=== PATIENT | male | born 1955 | race Caucasian/White ===

== ENCOUNTER 2022-05-16 16:30 | Emergency (ER) | payer OTHER, SELFPAY ==
[2022-05-16 16:39] VITALS: BP 174/76; PULSE 73; RESP 18; TEMP 36.4; O2SAT 99
--- NOTE | 2022-05-16 16:59 | PC.NURSE ---
Pt to the intake desk and states i was able to reduce it and ill just followup with the surgeon tomorrow
== END 2022-05-16 16:59 | disposition left against medical advice (07) ==
LOC: ANHED 17:12
PROVIDERS: PCP Internal Medicine
DX: R10.9 Unspecified abdominal pain (principal)
CPT/HCPCS: 99199

== ENCOUNTER 2022-05-30 01:46 | Day surgery (SDC) | payer OTHER, SELFPAY ==
[2022-05-26 09:27] VITALS: BMI 34.0
--- NOTE | 2022-05-27 13:57 | PM.HPGS ---
History of Present Illness History of Present Illness Consent: Risks, benefits, and alternatives have been discussed and questions answered. Patient agrees to proceed with procedure. Chief complaint: neoplasm screening Narrative: Zechariah Stapleton is a 67 year old male referred for colon cancer screening. Review of Systems Review of Systems: All systems reviewed & are unremarkable except as noted in HPI and below PMFSH Past Medical History Medical History HTN (hypertension) GILBERT (obstructive sleep apnea) Paroxysmal A-fib Family History Family History Sibling Patient's sister is in good health Father Bladder cancer Malignant neoplasm of prostate Mother Breast cancer Hypothyroidism Hypertension Social History Social History Smoking status: Former smoker Smoking end date: 07/31/86 Additional smoking assessment comments: Very distant Substance use type: does not use Spiritual care concerns: No Meds Home Medications and Allergies Home Medications Medication Instructions Recorded Confirmed Type apixaban 5 mg tablet (Eliquis) 5 mg PO BID 04/10/20 05/26/22 History candesartan 16 mg tablet 16 mg PO DAILY 04/10/20 05/26/22 History flecainide 50 mg tablet 50 mg PO Q12H 04/10/20 05/26/22 History multivitamin 1 tablet PO DAILY 04/10/20 05/26/22 History verapamil 180 mg 24 hr 360 mg PO HS 04/13/20 05/26/22 History capsule,extended release Allergies Allergy/AdvReac Type Severity Reaction Status Date / Time No Known Allergies Allergy Verified 05/30/22 12:21 Exam Resp: Auscultation: clear to auscultation bilaterally Cardio: Rate: regular rate Rhythm: regular rhythm GI: GI Palp: Yes Soft to palpation and No Tenderness to palpation present (GI) Assessment and Plan Assessment and plan (1) Encounter for screening colonoscopy: Code(s): Z12.11 - Encounter for screening for malignant neoplasm of colon Status: Acute Assessment and Plan: Colonoscopy with possible biopsy or polypectomy or cautery or injection of substances.
--- NOTE | 2022-05-27 16:34 | PC.NURSE ---
DR. JIMENEZ OFFICE CALLED REGARDING CLEARANCE TO HOLD ELIQUIS, OFFICE UNABLE TO GET CLEARANCE FROM PROVIDER AT THIS TIME, DR. LANDEROS CALLED REGARDING THIS AND HE IS OKAY FOR PT TO HOLD ELIQUIS FOR 2 DAYS AND PROCEED WITH COLONOSCOPY ON Monday05/30/2022 PATIENT IS PAROXYSMAL AFIB AND IS CURRENTLY NOT IN AFIB. PT CALLED AND WILL HOLD ELIQUIS STARTING WITH 05/28/2022 AM DOSE.
[2022-05-30 12:24] VITALS: BP 157/77; PULSE 58; RESP 18; TEMP 36.4; O2SAT 98; BMI 33.5
[2022-05-30] MEDS: LACTATED RINGERS 1,000 ML 150 ML IV CONT (12:33)
--- NOTE | 2022-05-30 12:47 | WPDANESEPPF ---
Anes - Initial Pre Proc Eval Procedure: Operation Date: 05/30/22 13:30 Proposed Procedures p Screening Colonoscopy - Lucian Goodman MD Date/Time: 05/30/22 12:47 Surgeon: Lucian Goodman MD Pre Op Diagnosis: neoplasm screening Patient Data Age: 67 Gender: M Height: 1.75 m Weight: 102.8 kg Last Vital Signs Temp 36.4 C 05/30/22 12:24 Pulse 58 L 05/30/22 12:24 Resp 18 05/30/22 12:24 BP 157/77 H 05/30/22 12:24 Pulse Ox 98 05/30/22 12:24 O2 Del Method Room Air 05/30/22 12:24 Allergies Allergy/AdvReac Type Severity Reaction Status Date / Time No Known Allergies Allergy Verified 05/30/22 12:21 Home Medications Medication Instructions Recorded Confirmed Type apixaban 5 mg tablet (Eliquis) 5 mg PO BID 04/10/20 05/26/22 History candesartan 16 mg tablet 16 mg PO DAILY 04/10/20 05/26/22 History flecainide 50 mg tablet 50 mg PO Q12H 04/10/20 05/26/22 History multivitamin 1 tablet PO DAILY 04/10/20 05/26/22 History verapamil 180 mg 24 hr 360 mg PO HS 04/13/20 05/26/22 History capsule,extended release Patient hx anesthesia problems: none Family hx anesthesia problems: none Results Review: All pre-operative results and documents have been reviewed as part of the pre-operative evaluation. [facility]LY [facility] Past Medical History Medical History HTN (hypertension) GILBERT (obstructive sleep apnea) Paroxysmal A-fib Family History Family History Sibling Patient's sister is in good health Father Bladder cancer Malignant neoplasm of prostate Mother Breast cancer Hypothyroidism Hypertension Social History Social History Smoking status: Former smoker Smoking end date: 07/31/86 Additional smoking assessment comments: Very distant Substance use type: does not use Spiritual care concerns: No Anes - Eval Final PreProcedure Day of Procedure 05/30/22 12:47 Patient weight: obese Heart: regular rate and rhythm Lungs: clear to auscultation Airway: Mallampati scale class II Last oral intake: >/= 8 hours ASA classification: III Emergent: no Anesthetic plan: proceed Anesthesia type and monitoring: general GIVS and standard monitoring Results Review: All pre-operative results and documents have been reviewed as part of the pre-operative evaluation. Informed Consent: The patient's anesthetic plan and its attendant risks and benefits were discussed with the patient/family/POA. Questions were solicited and answers provided to the satisfaction of the patient/family/POA.
[2022-05-30] MEDS: SIMETHICONE ORAL SUSPENSION 20 MG/0.3 ML 30 ML BOTTLE 0.6 ML IRRIGATION (13:30)
[2022-05-30 13:42] VITALS: BP 126/75; PULSE 56; RESP 21; O2SAT 97
--- NOTE | 2022-05-30 13:42 | SUR.OPER ---
ONE RECTAL POLYP HOT SNARED, SPECIMEN UNRETRIEVED, DR LANDEROS MADE AWARE, NO NEW ORDERS.
[2022-05-30 13:52] VITALS: BP 132/81; PULSE 54; RESP 18; O2SAT 98
[2022-05-30 14:02] VITALS: BP 125/67; PULSE 51; RESP 16; O2SAT 99
== END 2022-05-30 14:16 | disposition home or self-care (01) ==
PROVIDERS: PCP Family Medicine; Visit Provider Internal Medicine Gastroenterology
PROC: 0DJD8ZZ Inspection of Lower Intestinal Tract, Via Natural or Artificial Opening Endoscopic (ICD-10-PCS; CPT 45378; principal; 2022-05-30 13:30)
DX: Z12.11 Encounter for screening for malignant neoplasm of colon (principal); K57.30 Diverticulosis of large intestine without perforation or abscess without bleeding; K62.1 Rectal polyp; I48.0 Paroxysmal atrial fibrillation; I10 Essential (primary) hypertension; G47.33 Obstructive sleep apnea (adult) (pediatric); Z79.01 Long term (current) use of anticoagulants; Z87.891 Personal history of nicotine dependence; E66.9 Obesity, unspecified; Z68.33 Body mass index [BMI] 33.0-33.9, adult
CPT/HCPCS: 45385; J2704; J7120

== ENCOUNTER 2022-06-01 11:24 | Outpatient (CLI) | payer OTHER, SELFPAY ==
--- NOTE | 2022-06-01 11:38 | ECG_ITS ---
Measurements Intervals [place] Rate: 48 P: 31 VA: 220 QRS: -10 QRSD: 106 T: 13 QT: 452 QTc: 407 Interpretive Statements SINUS BRADYCARDIA WITH FIRST DEGREE AV BLOCK DELAYED PRECORDIAL R/S TRANSITION ABNORMAL ECG NO PREVIOUS ECG AVAILABLE FOR COMPARISON Electronically Signed On 06-01-2022 11:48:35 CDT by Rehan Lantigua D.O.
[2022-06-01 12:24] LABS: Basophils Percent Auto 0.5 % (0.2-1.2); Eosinophils Absolute Auto 0.1 K/mm3 (0-0.3); Eosinophils Percent Auto 0.6 % (0-4.4); Hematocrit 42.3 % (42.0-52.0); Hemoglobin 13.8 g/dL (14.0-18.0); Immature Granulocyte Absolute 0.03 K/mm3 (0.00-0.031); Immature Granulocyte Percent A 0.4 % (0-0.5); Lymphocytes Absolute Auto 2.33 K/mm3 (0.9-3.2); Mean Corpuscular HGB Conc 32.6 g/dl (32-36); Mean Corpuscular Hemoglobin 31.4 pg (26-34); Mean Corpuscular Volume 96.4 fl (80-100); Mean Platelet Volume 10.6 fl (7.4-10.4); Monocytes Absolute Auto 0.6 K/mm3 (0.1-0.6); Monocytes Percent Auto 7.7 % (2.6-8.5); Neutrophils Percent Auto 61.8 % (45.5-73.1); Platelet Count Result 250 k/mm3 (150-375); Red Blood Count 4.39 M/mm3 (4.6-6.20); Red Cell Distribution Width 13.2 % (11.5-14.5)
[2022-06-01 12:34] LABS: Alanine Aminotransferase 25 U/L (6-50); Albumin Level 4.3 g/dL (3.5-5.1); Alkaline Phosphatase 57 U/L (38-126); Anion Gap 8 mmol/L (8-16); Aspartate Amino Transferase 24 U/L (17-59); Bilirubin,Total 0.5 mg/dL (0.2-1.3); Blood Urea Nitrogen 23 mg/dL (9-20); Calcium 8.7 mg/dL (8.4-10.2); Carbon Dioxide 26 mmol/L (22-30); Chloride 105 mmol/L (98-107); Estimated Glomerular Filt Rate > 60; Glucose 92 mg/dL (65-110); Potassium 3.9 mmol/L (3.4-5.0); Sodium 139 mmol/L (137-145)
== END 2022-06-01 11:25 | disposition home or self-care (01) ==
LOC: ANHSURGERY 11:28
PROVIDERS: PCP Family Medicine; Visit Provider Surgery
DX: K40.90 Unilateral inguinal hernia, without obstruction or gangrene, not specified as recurrent (principal); I44.0 Atrioventricular block, first degree
CPT/HCPCS: 36415; 80053; 85025; 93005

== ENCOUNTER 2022-06-06 00:36 | Day surgery (SDC) | payer OTHER, SELFPAY ==
[2022-05-31 08:38] VITALS: BMI 32.8
--- NOTE | 2022-05-31 08:53 | PC.NURSE ---
Addendum entered by Eliz Leon RN 05/31/22 09:17: [place] shower morning of surgery, pt relays understanding. Original Note: Report to the Outpatient Waiting Room, entrance under the green pavilion located off [facility], at time __10:00AM on date __06/06/22 . Planned Procedure Time: _12:00PM . Time changes happen often and if your time is changed the preop area will call you the afternoon before. - You and your visitor will be asked to self-screen and do not enter if you have any COVID symptoms. - We encourage only one visitor and NO visitors under age 16 are allowed at this time. Your visitor will receive communication by the phone number that is given day of service. - The patient visitor is requested to social distance or may leave the building when not with patient due to restrictions. - A mask is required within the hospital. Patients may have clear liquids (water, carbonated beverages, clear teas, apple juice) until 3 hours prior to surgery with a maximum of 20 ounces. - No food from midnight until time of surgery Take the following medications with a SIP of water the morning of surgery: __FLECAINIDE, VERAPAMIL Medications to discontinue per physician ____HOLD ELIQUIS 48 HRS PRE-OP PER DR GARZON- LAST DOSE06/03/22; HOLD ALL VITAMINS/SUPPLEMENTS 3 DAYS PRE-OP- LAST DOSE 06/02/22___ Please no make-up, nail belarusian, hairspray, perfume, deodorant, or body powder the day of surgery. No jewelry (including any body piercings) or valuables the day of surgery, leave them at home. Please take a shower or bath the night before, or the morning of, surgery with an antibacterial soap. Wear comfortable, loose fitting clothing. Children are encouraged to wear pajamas. - Jewelry must be removed prior to entering the operating room. Rings and piercings that are not removed may be cut off. - The hospital will not accept responsibility for valuables. - Please leave all valuables, including medications, at home the day of surgery. If you are going home after surgery, a licensed dump truck driver off highway must drive you home. - NO public transportation without another adult. - We recommend that an adult stay with you for 24 hours following discharge. - We also recommend that you do not drive, make important decision, drink alcoholic beverages, or take any drugs that were not prescribed by your health care provider for at least 24 hours after your discharge time. Follow any additional instructions given to you from your surgeon. If you or anyone in your household have experienced Covid symptoms in the past week, please notify your surgeon or the nurse liaison at the phone number below for possible testing. Telephone instructions given to ___PATIENT and asked if any additional questions and then verbalized understanding. Patient advised to call surgeon office or pre surgery nurse liaison [phone] if any additional questions.
[2022-06-06] VITALS (8 sets, daily range): BP systolic 120–164; BP diastolic 63–83; PULSE 60–98; RESP 16–18; TEMP 36.9; O2SAT 92–97
[2022-06-06] MEDS: LACTATED RINGERS 1,000 ML 30 ML IV CONT ×2 (10:22→14:36)
[2022-06-06] MEDS: ACETAMINOPHEN 500 MG TABLET 1000 MG PO (10:22)
[2022-06-06] MEDS: KETOROLAC 15 MG/ML VIAL (*BKC) IV PUSH (10:24)
--- NOTE | 2022-06-06 10:26 | P.PNAN_ITS ---
Anes - Initial Pre Proc Eval Procedure: Operation Date: 06/06/22 11:30 Proposed Procedures p Open Left Inguinal Hernia Repair with Mesh - Jason Stapleton MD Date/Time: 06/06/22 10:26 Surgeon: Jason Stapleton MD Pre Op Diagnosis: Lt Ing Hernia Patient Data Age: 67 Gender: M Height: 1.75 m Weight: 104.2 kg Last Vital Signs Temp 98.4 F 06/06/22 09:42 Pulse 78 06/06/22 09:42 Resp 18 06/06/22 09:42 BP 164/83 H 06/06/22 09:42 Pulse Ox 97 06/06/22 09:42 O2 Del Method Room Air 06/06/22 09:42 Allergies Allergy/AdvReac Type Severity Reaction Status Date / Time No Known Allergies Allergy Verified 06/06/22 09:52 Home Medications Medication Instructions Recorded Confirmed Type apixaban 5 mg tablet (Eliquis) 5 mg PO BID 04/10/20 06/06/22 History candesartan 16 mg tablet 16 mg PO DAILY 04/10/20 06/06/22 History flecainide 50 mg tablet 50 mg PO Q12H 04/10/20 06/06/22 History multivitamin 1 tablet PO DAILY 04/10/20 06/06/22 History verapamil 180 mg 24 hr 360 mg PO HS 04/13/20 06/06/22 History capsule,extended release Patient hx anesthesia problems: none Family hx anesthesia problems: none Results Review: All pre-operative results and documents have been reviewed as part of the pre- operative evaluation. PMFSH Past Medical History Medical History HTN (hypertension) GILBERT (obstructive sleep apnea) Paroxysmal A-fib Family History Family History Sibling Patient's sister is in good health Father Bladder cancer Malignant neoplasm of prostate Mother Breast cancer Hypothyroidism Hypertension Social History Social History Smoking packs per day: 0.2 Smoking cigarettes per day: 4.0 Years smoked: 3 Smoking pack-years: 0.60 Smoking status: Former smoker Tobacco type: cigarettes Smoking end date: 07/31/86 Additional smoking assessment comments: Very distant Substance use: never Substance use type: does not use Living arrangements: with family Additional living arrangements comments: SPOUSE Spiritual care concerns: No Anes - Eval Final PreProcedure Day of Procedure 06/06/22 10:26 Patient weight: normal Heart: regular rate and rhythm Lungs: clear to auscultation Airway: Mallampati scale class II Neurological: alert and oriented Last oral intake: >/= 8 hours ASA classification: III Emergent: no Anesthetic plan: proceed Anesthesia type and monitoring: general GIVS and standard monitoring Results Review: All pre-operative results and documents have been reviewed as part of the pre- operative evaluation. Informed Consent: The patient's anesthetic plan and its attendant risks and benefits were discussed with the patient/family/POA. Questions were solicited and answers provided to the satisfaction of the patient/family/POA.
--- NOTE | 2022-06-06 11:00 | SUR.PREOP ---
PER DR GARZON PATIENT IS TO RECEIVE ANCEF 2GM
--- NOTE | 2022-06-06 11:04 | WPDHPUPDATE1 ---
History and Physical Update Update Date/Time: 06/06/22 11:04 History and Physical has been reviewed, including an updated exam of the patient. There are NO changes in the patient's condition. Risks, benefits, and alternatives have been discussed and questions answered. Patient agrees to proceed with procedure.
[2022-06-06] MEDS: ceFAZolin 2 GM/D5W 50 ML 2 GM/50 ML BAG IVPB (11:19)
[2022-06-06] MEDS: LIDOCAINE HCL 1% PF 30 ML VIAL 15 ML INFILTRATE (11:45)
[2022-06-06] MEDS: BUPIVACAINE/EPINEPHRINE 0.25% 50 ML VIAL 15 ML INFILTRATE (11:46)
--- NOTE | 2022-06-06 14:49 | W.PM.PROC2 ---
Procedure Note - Detailed Date of Procedure 06/06/22 Pre-op Diagnosis Lt Ing Hernia Post-op Diagnosis Other ( large left indirect inguinal hernia) Procedure Performed open left inguinal hernia repair with mesh Surgeon Jason Stapleton MD Tonnage Compilation Clerk Sophy LIEBERMAN, OR 1st assist Anesthesia Local ( using 1% plain xylocaine +0.25% Marcaine with epinephrine) and Other (GIVS) Indications patient has a discomforting enlarging bulge in the left groin area. Findings Patient a large indirect inguinal hernia with incarcerated omentum which reduced easily after the hernia sac was opened. Get significant weakening of the area of Hesselbach's triangle that was reinforced with the mesh as indicated below. Description of Procedure The patient was placed in the supine position on the operating room table. After induction of adequate GIVS anesthesia by [facility] Anest[facility] staff, we carefully prepped the entire lower abdomen with chlorhexidine and scrotum and penis with Betadine. One sterile towel was placed underneath the scrotum. Four towels were placed around the left lower quadrant. Following this, a time-out was performed with the surgical team and the patient's surgical procedure and site was confirmed. We then carefully outlined a curvilinear incision in the left groin area and a curvilinear incision was made after introducing a mixture of local anesthetic, using 0.25% Marcaine with epinephrine and 1% Xylocaine plain as both an ilioinguinal nerve block and at the incision site with a 25 gauge needle. Following this, I carefully made the incision, and carried it down through the subcutaneous tissue. Baldomero's fascia was incised and then we identified the external oblique aponeurosis and the external ring. Following this, the same mixture of local anesthetic was infiltrated underneath the external oblique aponeurosis and this was split in the direction of it's fibers with a #15 blade initially and then using Metzenbaum scissors. I then opened the external oblique through the external ring and incised this somewhat posteriorly and superiorly. The Ilioinguinal nerve appeared to be completely covered with fatty tissue and was not obvious through dissection of the cord structures off the hernia sac. It is possible that I transected this during the dissection but it was not visualized. Then I carefully and meticulously dissected out the cord structures at the level of the pubic tubercle. I then surrounded these structures at the level of pubic tubercle and placed a [place] drain around them. I then carefully dissected the hernia sac up and off of the cord tissues, and brought it up and out of the incision. We carefully dissected the layers and cremasteric tissues off the hernia sac and then eventually opened the hernia sac. Holding this up with 4 hemostats, I carefully dissected it off the cord structures, being careful to avoid injury to the Pampiniform plexus veins, the spermatic artery and the vas. Once the hernia sac was carefully dissected back to the level of the internal ring, a suture ligation with a pursestring suture of 2-0 silk was used to close the neck of the hernia sac and following this, a 2 - 0 silk tie was placed just below this, tied tight, and then distally the hernia sac was amputated with Bovie cautery. It was then passed off the field for pathologic evaluation. Following this, we took care to recreate an appropriate inguinal canal. This was done by carefully dissecting from the internal ring down to the pubic bone, and dissecting away any cremasteric tissue. A running suture of 0 Prolene was placed in the pubic tubercle and run up to the internal ring, approximating the Transversalis fascia to the ilioinguinal ligament. Once this was done, we then opened the Bard preshaped keyhole polypropylene mesh and I then positioned it nicely over Hesselbach's triangle. I did trim the inferior end just by about 1 cm such that the dist
--- NOTE | 2022-06-06 16:50 | SUR.PHASEII ---
1615 PATIENT URINATED BUT ONLY DROPS PER PATIENT, NOT A NORMAL STREAM. 1650 PATIENT ATTEMPTING AGAIN TO URINATE; STATE HE FEELS A FULL BLADDER.
--- NOTE | 2022-06-06 17:05 | SUR.PHASEII ---
PATIENT UNABLE TO URINATE STILL; BLADDER SCAN SHOWS [address] GARZON CALLED WHO SAID PATIENT MAY STAY ANOTHER HOUR; IF STILL UNABLE TO URINATE, PLACE [facility] CATHETER AND DISCHARGE HOME. OFFICE WILL CALL PATIENT TOMORROW TO SET UP AN APPOINTMENT WITH A UROLOGIST. PATIENT UNDERSTANDS PLAN AND AGREES WITH IT.
--- NOTE | 2022-06-06 17:59 | SUR.PHASEII ---
PATIENT STATES HE URINATED SMALL AMOUNT; NOW WALKING THE HALLS; WILL ATTEMPT TO URINATE AGAIN.
--- NOTE | 2022-06-06 18:59 | SUR.PHASEII ---
URINARY BAG CHANGED TO LEG BAG; LARGE BAG GIVEN TO PATIENT FOR NIGHTTIME USE.
== END 2022-06-06 19:00 | disposition home or self-care (01) ==
PROVIDERS: PCP Family Medicine; Visit Provider Surgery
PROC: (CPT 49505; principal; 2022-06-06 11:30)
DX: K40.90 Unilateral inguinal hernia, without obstruction or gangrene, not specified as recurrent (principal); I48.0 Paroxysmal atrial fibrillation; I10 Essential (primary) hypertension; G47.33 Obstructive sleep apnea (adult) (pediatric); Z79.01 Long term (current) use of anticoagulants; Z87.891 Personal history of nicotine dependence
CPT/HCPCS: 49505; 88302; A9270; C1781; J0690; J1170; J1885; J2250; J2405; J2704; J3010; J7120

== ENCOUNTER 2024-05-06 14:36 | Outpatient (CLI) | payer OTHER, SELFPAY ==
[2024-05-06 17:49] LABS: Prostate Specific Antigen 0.7 ng/mL (< OR = 4.0)
== END 2024-05-06 14:37 | disposition home or self-care (01) ==
LOC: ANHGOSHLAB 14:39
PROVIDERS: PCP Family Medicine
DX: R79.89 Other specified abnormal findings of blood chemistry (principal)
CPT/HCPCS: 36415; 84153; 84439; 84443; G0103

== ENCOUNTER 2025-05-19 10:01 | Outpatient (CLI) | payer OTHER, SELFPAY ==
--- OUTSIDE RECORDS SUMMARY | 2025-05-19 08:10 | XMS_ITS | Encounter Summary ---
Author Organization [facility] Address [facility] [place] [address] Care Team Providers Care [employer] Name Role Phone None, Provider Unavailable Unavailable Soo Drew MD Primary Care Provider + Reason for Referral * Consultation (Routine) - New Request Specialty Diagnoses / Procedures Referred By Hanna t Referred To Contact [facility] Medical Oncology Diagnoses Family history of blood disorder Procedures OFFICE/OUTPATIENT NEW LOW MDM 30-44 MINUTES OFFICE/OUTPT VISIT,NEW,LEVL IV OFFICE/OUTPT VISIT,NEW,LEVL V OFFICE/OUTPT VISIT,EST,LEVL III OFFICE/OUTPT VISIT,EST,LEVL IV OFFICE/OUTPT VISIT,EST,LEVL V Soo Drew MD [address] [place] [phone] Phone: tel: fax: Referral ID Status Reason Start Date Expiration Date Visits Requested Visits Authorized [id number] New Request Specialty Services 05/19/2026 1 1 Scheduling Instructions FH heparin induced thrombocytopenia. Reason for Visit * Reason Comments Annual Here for his annual ck up. Encounter Details Date Type Department Care Team (Late st Contact Info) Description 05/19/2025 8:10 AM CDT Office Visit [facility] Medical Group Family Medicine - [place] [address] [place] [phone] Soo Drew MD [address] [address] Annual (Here for his annual ck up. ) Social History Tobacco Use Types Packs/Day Years Used Date Smoking Tobacco: Former Cigarettes 0.3 4 Q uit: 12/29/1989 Passive Smoke Exposure: Past Smokeless Tobacco: Never Tobacco Cessation:Counseling Given: No Alcohol Use Standard Drinks/Week Comments Not Currently 0 (1 standard drink = 0.6 oz pur e alcohol) PHQ-2 Answer Date Recorded Patient Health Questionnaire-2 Score 0 05/19/2025 Sex and Gender Information Value Date Recorded Sex Assigned at Not on file Legal Sex Male 8:02 PM CDT Gender Identity Not on file Sexual Orientation Not on file documented as of this encounter Last Filed Vital Signs Vital Sign Reading Time Taken Comments Blood Pressure 124/70 05/19/2025 8:02 AM CDT Pulse 50 05/19/2025 8:02 AM CDT Temperature 36.7 C (98.1 F) 05/19/2025 8:02 AM CDT Respiratory Rate - - Oxygen Saturation 96% 05/19/2025 8:02 AM CDT Inhaled Oxygen Concentration - - Weight 110.2 kg (243 lb) 05/19/2025 8:02 AM CDT Height 175.3 cm (5' 9) 05/19/2025 8:02 AM CDT Body Mass Index 35.88 05/19/2025 8:02 AM CDT documented in this encounter Functional Status * Over the past 2 weeks, how often have you been bothered by any of the following problems? Question Answer Date of Assessment Author Status Little interest or pleasure in doing things Not at all 05/19/2025 8:09 AM CDT Radha Trevino MA Active Feeling down, depressed, or hopeless Not at all 05/19/2025 8:09 AM CDT Radha Trevino MA Activ e Patient Health Questionnaire-2 Score 0 05/19/2025 8:09 AM CDT Radha Trevino MA Active * If you checked off any problems on this questionnaire so far, Question Answer Date of Assessment Author Status How difficult have these problems made it for you to do your work, take care of things at home, or get along with other people? Not difficult at all 05/19/2025 8:09 AM CDT Radha Trevino MA Active documented as of this encounter Patient Instructions * Patient Instructions* Soo Drew MD - 05/19/2025 8:10 AM CDT Images from the original note were not included. High Fiber Diet About this topic Dietary fiber helps many illnesses. It can help you if you cannot have a bowel movement or if you have loose stools. Fiber can also lower your risk of diabetes and heart disease. Fiber can help with weight loss by helping you feel lang after meals. You can find fiber in fruits, vegetables, nuts and seeds, whole grains, and legumes. The fiber is the part of the plant food that your body cannot break down and absorb. It passes through your stomach, small bowel, colon, and out your body. There are two kinds of fiber: Insoluble and soluble fiber. Insoluble fiber helps you pass foods through your digestive system. Insoluble fiber can help you with hard stools. Soluble fiber draws waterin and turns it into a gel-like form making digestion slow down. Both are important. What will the results be? A high fiber diet can help you with bowel problems like stools that are too hard or too loose. It can also help prevent hemorrhoids and other colon problems. A high fiber diet can also help control your weight and lower blood sugar and cholesterol levels. What changes to diet are needed? The amount of fiber you need is based on your age, gender, and health. Try to get 20 to 35 grams of fiber in your diet each day. Most people in the [place] only eat 15 grams of fiber daily. Drink at least 8 cups (1920 mL) of fluid each day. When is this diet used? Your doctor may talk with you about this diet if you have belly problems. Who should use this diet? Older children, young people, and adults can have this diet. Who should not use this diet? Some people should not use this diet. Check with your doctor if you have: Diverticulitis Active Crohn's disease Ulcerative colitis Bowel inflammation Certain types of GI surgery Talk to your child's doctor before starting your child on a high fiber diet. What foods are good to eat? To get the most from fiber in your diet, eat a wide variety of high fiber foods. Some examples are: Vegetables like: Spinach Peas Artichoke Sweet potatoes with skin Broccoli Fruits like: Raspberries Blueberries Blackberries Apples with skin Dried fruits Grains like: Oat bran Barley Whole wheat products Wheat bran Dried beans and nuts like: Martins Ferry seeds Almonds Black beans Chickpeas What problems could happen? Sudden increase of fiber intake can lead to gas, pain, fullness in your belly, and loose stools. Increase fiber gradually while drinking plenty of fluids. Do not eat too much fiber. Your body will not take in vitamins and minerals as well if you eat too much fiber. When do I need to call the doctor? Health problem is not better or you are feeling worse. Helpful tips Start slow as you add more fiber to your diet. This may help prevent gas or cramps. Try to eat the same amount of fiber each day. Aim to get your fiber from nutritious foods. Supplements do not offer the same benefits as food. Read food labels with care to learn how much fiber is in the food you are eating. If possible, do not peel fruits or vegetables before you eat them. Eating the peel gives you more fiber. Last Reviewed Date 2021-04-22 Consumer Information Use and Disclaimer This generalized information is a limited summary of diagnosis, treatment, and/or medication information. It is not meant to be comprehensive and should be used as a tool to help the user understand and/or assess potential diagnostic and treatment options. It does NOT include all information about conditions, treatments, medications, side effects, or risks that may apply to a specific patient. Itis not intended to be medical advice or a substitute for the medical advice, diagnosis, or treatment of a health care provider based on the health care provider's examination and assessment of a patient???s specific and unique circumstances. Patients must speak with a health care provider for complete information about their health, medical questions, and treatment options, including any risks orbenefits regarding use of medications. This information does not endorse any treatments or medications as safe, effective, or approved for treating a specific patient. [employer]. and its affiliates disclaim any warranty or liability relating to this information or the use thereof. The use of this information is governed by the Terms of Use, available at https://www.[employer].com/en/know/aqqvuupw-lqhbfsmlekeit-dybqn Copyright Copyright ?? 2022 [employer]. and its affiliates and/or licensors. All rights reserved. documented in this encounter Progress Notes * Soo Drew MD - 05/19/2025 8:38 AM CDTAssociated Problem(s): Subclinical hypothyroidism Ordered TSH and T4. * Radha Trevino MA - 05/19/2025 8:10 AM CDTAddended by: RADHA TREVINO on: 05/19/2025 08:52 AM Modules accepted: Orders * Soo Drew MD - 05/19/2025 8:10 AM CDTSummary: cpx Well Male Exam Zechariah Stapleton is a 70-year-old male who presents to clinic for an annual exam and managementof chronic disease. Problem Subclinical Hypothyroidism Patient Active Problem List Diagnosis Bradycardia Chronic anticoagulation Essential hypertension Obstructive sleep apnea syndrome Paroxysmal atrial fibrillation ([facility]) Hydrocele in adult Subclinical hypothyroidism We reviewed and updated his medication list as necessary. Current Outpatient Medications: apixaban (ELIQUIS) 5 MG tablet, Take 1 tablet (5 mg total) by mouth 2 (two) times daily., Disp: , Rfl: candesartan (ATACAND) 32 MG tablet, Take 0.5 tablets (16 mg total) by mouth daily., Disp: , Rfl: flecainide (TAMBOCOR) 50 MG tablet, Take 1 tablet (50 mg total) by mouth 2 (two) times daily., Disp: , Rfl: verapamil (CALAN SR) 180 MG ER tablet, Take 2 tablets (360 mg total) by mouth daily., Disp: , Rfl: Review of patient's allergies indicates: No Known Allergies His past medical and surgical history as well as his family history were reviewed and updated as necessary. Social History[1] Family History[2] ROS: Review of Systems Constitutional: Negative for activity change, chills, fatigue, fever and unexpected weight change. HENT: Negative for congestion, hearing loss, rhinorrhea, sinus pressure, sinus pain, sore throat and tinnitus. Respiratory: Negative for cough, shortness of breath and wheezing. Cardiovascular: Negative for chest pain and palpitations. Gastrointestinal: Negative for abdominal pain, blood in stool, constipation, diarrhea, nausea and vomiting. Endocrine: Negative for polydipsia, polyphagia and polyuria. Genitourinary: Negative for dysuria, frequency and hematuria. Musculoskeletal: Negative for arthralgias, myalgias and neck pain. Skin: Negative for rash. Neurological: Negative for dizziness, tremors, weakness, numbness and headaches. Psychiatric/Behavioral: Negative for behavioral problems, confusion, dysphoric mood and sleep disturbance. The patient is not nervous/anxious. OBJECTIVE: VS: Filed Vitals: 05/19/25 0802 BP: 124/70 Pulse: (!) 50 Temp: 98.1 ??F (36.7 ??C) TempSrc: Temporal SpO2: 96% Weight: 110.2 kg (243 lb) Height: 1.753 m (5' 9) Physical Exam Constitutional: Appearance: Normal appearance. HENT: Right Ear: Tympanic membrane normal. Left Ear: Tympanic membrane normal. Nose: Nose normal. No congestion. Mouth/Throat: Mouth: Mucous membranes are dry. Eyes: Extraocular Movements: Extraocular movements intact. Pupils: Pupils are equal, round, and reactive to light. Cardiovascular: Rate and Rhythm: Normal rate and regular rhythm. Pulses: Normal pulses. Heart sounds: Normal heart sounds. Pulmonary: Effort: Pulmonary effort is normal. No respiratory distress. Breath sounds: Normal breath sounds. No wheezing or rales. Abdominal: General: Bowel sounds are normal. There is no distension. Palpations: Abdomen is soft. There is no mass. Tenderness: There is no abdominal tenderness. Skin: General: Skin is warm and dry. Neurological: General: No focal deficit present. Mental Status: He is alert and oriented to person, place, and time. Psychiatric: Mood and Affect: Mood normal. Behavior: Behavior normal. Judgment: Judgment normal. No visits with results within 10 Day(s) from this visit. Latest known visit with results is: Appointment on 11/26/2024 Component Date Value Ref Range Status HGB A1C 11/26/2024 5.5 <5.7 % Final Comment: INCREASED RISK OF DIABETES <5.7% NON-DIABETES 5.7-6.4% INCREASED RISK FOR FUTURE DIABETES > OR = 6.5 CONSISTENT WITH DIABETES STANDARDS OF MEDICAL CARE IN DIABETES-2010 DIABETES CARE, 33(SUPP 1): S1-S61,2010 ESTIMATED AVG GLUCOSE 11/26/2024 111 mg/dL Final WBC 11/26/2024 6.61 4.4 - 11.0 x10'3/uL Final RBC 11/26/2024 4.05 (L) 4.50 - 5.90 x10'6/uL Final HGB 11/26/2024 12.9 (L) 14.0 - 17.5 G/DL Final HCT 11/26/2024 38.2 (L) 41.5 - 50.4 % Final MCV 11/26/2024 94.3 80.0 - 96.0 FL Final MCH 11/26/2024 31.9 (H) 26.5 - 31.4 PG Final MCHC 11/26/2024 33.8 31.9 - 34.8 G/DL Final RDW 11/26/2024 13.3 12.3 - 14.3 % Final PLT 11/26/2024 258 151 - 353 x10'3/uL Final MPV 11/26/2024 10.4 9.7 - 11.9 FL Final RBC MORPHOLOGY 11/26/2024 NORMAL Final PLT MORPH. 11/26/2024 NORMAL Final WBC MORPHOLOGY 11/26/2024 NORMAL Final LYMPHOCYTES % 11/26/2024 31.2 15.8 - 45.0 % Final NEUTROPHILS % 11/26/2024 58.4 42.1 - 71.9 % Final MONOCYTES % 11/26/2024 8.2 5.7 - 12.5 % Final EOSINOPHILS 11/26/2024 1.1 0.0 - 5.6 % Final BASOPHILS 11/26/2024 0.6 0.0 - 1.3 % Final ABS. NEUTROPHILS 11/26/2024 3.87 1.40 - 6.00 x10'3/uL Final IMMATURE GRANS % 11/26/2024 0.5 0.0 - 0.5 % Final ABS. LYMPHOCYTES 11/26/2024 2.06 0.80 - 4.70 x10'3/uL Final GLUCOSE 11/26/2024 93 70 - 99 MG/DL Final BUN 11/26/2024 25 (H) 7 - 18 MG/DL Final CREATININE S/P/B 11/26/2024 1.09 0.7 - 1.3 MG/DL Final SODIUM S/P/B 11/26/2024 140 136 - 145 MMOL/L Final POTASSIUM S/P/B 11/26/2024 4.1 3.5 - 5.1 MMOL/L Final CHLORIDE S/P/B 11/26/2024 106 100 - 108 MMOL/L Final CO2 11/26/2024 25.4 21 - 32 MMOL/L Final CALCIUM S/P/B 11/26/2024 8.6 8.5 - 10.1 MG/DL Final BILIRUBIN TOTAL S/P/B 11/26/2024 0.4 0.2 - 1.2 MG/DL Final TOTAL PROTEIN S/P/B 11/26/2024 6.9 6.4 - 8.2 G/DL Final ALBUMIN S/P/B 11/26/2024 3.4 3.4 - 5.0 G/DL Final AST 11/26/2024 17 15 - 37 U/L Final ALT 11/26/2024 29 16 - 60 U/L Final ALKALINE PHOSPHATASE S/P/B 11/26/2024 37 (L) 50 - 136 U/L Final ANION GAP 11/26/2024 8.6 5 - 15 MMOL/L Final BUN CREATININE RATIO 11/26/2024 22.9 6 - 26 Final A/G RATIO 11/26/2024 1.0 1.0 - 2.0 RATIO Final GFR ESTIMATE 11/26/2024 74 (L) >90 ML/MIN/1.73 M2 Final Comment: NOTE: eGFR is not calculated for patients <18 years of age. This is an estimated GFR calculation using the new CKD EPI creatinine equation without race and so does not require a correction factor for race. This estimated GFR should not be used for calculating drug doses. TSH 11/26/2024 5.392 (H) 0.358 - 3.74 uIU/ML Final Comment: HIGH DOSES OF BIOTIN MAY INTERFERE WITH THIS TEST RESULT. CORRELATION TO CLINICAL HISTORY AND PRESENTATION RECOMMENDED. CHOLESTEROL 11/26/2024 151 <200.0 MG/DL Final TRIGLYCERIDES 11/26/2024 50 <150 MG/DL Final HDL 11/26/2024 65 >40.0 MG/DL Final LDL (CALCULATED) 11/26/2024 76 <100 MG/DL Final NON HDL CHOLESTEROL 11/26/2024 86 <130 MG/DL Final CHOL/HDL RATIO 11/26/2024 2.3 0.0 - 4.5 Final VLDL CALCULATION 11/26/2024 10 5 - 55 MG/DL Final LIPID INTERPRETATION 11/26/2024 Final Comment: NIH CONCENSUS REPORT RECOMMENDATIONS: ADULT CHILD LOW RISK: CHOLESTEROL <200 <170 TRIGLYCERIDE <150 --- HDL >=60 --- LDL <100 <110 BORDERLINE: CHOLESTEROL 200-239 170-199 TRIGLYCERIDE 150-199 --- HDL 40-59 --- LDL 100-159 110-129 HIGH RISK: CHOLESTEROL >=240 >=200 TRIGLYCERIDE >=200 --- HDL <40 --- LDL >=160 >=130 PSA 11/26/2024 0.65 <4.00 NG/ML Final Comment: Test was performed using the Siemens method. Results obtained with other assay methods or kits cannot be used interchangeably with results obtained by the Siemens method. VITAMIN D 25 HYDROXY S/P/B 11/26/2024 50 30 - 100 NG/ML Final Comment: INTERPRETATION DEFICIENT <20 INSUFFICIENT 20-29 SUFFICIENT 30-100 ] ASSESSMENT AND PLAN: Zechariah Stapleton is a 70-year-old male Preventive health: - Prostate cancer screening ordered due to family history - STD screening declined/not indicated - Colon cancer screening last performed 05/30/2022, one polyp, repeat 5 years. [place]am. - Diabetes screening ordered - [facility]id panel [facility]. - Discussed diet changes and exercise - Immunizations: Tdap given, Prevnar 2023, Shingrix considering, and Flu given. - Depression screening neg - HCPOA discussed. Code status: FULL Subclinical hypothyroidism Ordered TSH and T4. Lab: None Specified Return in about 1 year (around 05/19/2026) for CPX. SOO DERW MD Family Practice This document was created in part by using voice recognition software and was reviewed by the author. If errors are present, please bring them to your provider's attention. [1] Social History Socioeconomic History Marital status: Tobacco Use Smoking status: Former Current packs/day: 0.00 Average packs/day: 0.3 packs/day for 4.0 years (1.0 ttl pk-yrs) Types: Cigarettes Quit date: 12/29/1989 Years since quittin.4 Passive exposure: Past Smokeless tobacco: Never Vaping Use Vaping status: Never Used Substance and Sexual Activity Alcohol use: Not Currently Drug use: Never Sexual activity: Yes Partners: Female control/protection: Post-menopausal Social History Narrative Lives at home with [2] Family History Problem Relation Name Age of Onset Cancer Mother Jeaneth Breast cancer Cancer Father Marcelo Prostate Cancer Father Marcelo Heart Disease Father Marcelo heparin induced thrombocytopenia No Known Problems Sister No Known Problems Daughter No Known Problems Daughter No Known Problems Son documented in this encounter Plan of Treatment Upcoming Encounters Date Type Department Care Team (Late st Contact Info) Description 05/25/2026 8:10 AM CDT Office Visit [facility] Medical Group Family Medicine - [place] [address] [facility] [address] [place] [phone] Soo Drew MD [address] [facility] [address] [place] [phone] Scheduled Orders Name Type Priority Associated Diagnoses Orde r Schedule PROSTATE SPECIFIC ANTIGEN,SCREENING Lab Today Special screening for malignant neoplasm of prostate Ordered: 05/19/2025 THYROID STIM HORMONE TSH Lab Today Subclinical hypothyroidism Ordered: 05/19/2025 THYROXINE, FREE (FT4) Lab Routine Subclinical hypothyroidism Expected: 05/26/2025 (Approximate), Expires: 05/19/2026 Scheduled Referrals Name Type Priority Associated Diagnoses Orde r Schedule Ambulatory referral to Hematology Referral Routine Family history of blood disorder Ordered: 05/19/2025 documented as of this encounter Visit Diagnoses Diagnosis Routine general medical examination at a health care facility- Primary Family history of blood disorder Family history of other blood disorders Special screening for malignant neoplasm of prostate Subclinical hypothyroidism Other specified acquired hypothyroidism Need for oxfeqyzawj-cmvhulg-snshbayoa (Tdap) vaccine Need for prophylactic vaccination with combined yyukyiucba-ijdnavz-ikwidpwes (DTP) vaccine Need for immunization against influenza Need for prophylactic vaccination and inoculation against influenza documented in this encounter Care Teams [employer] Intern[employer] Relationship Specialty Start Date End Date Soo Drew MD [address] [place] [phone] PCP - General FAMILY PRACTICE 05/07/24 None, ProviderMD 10/26/23 documented as of this encounter
--- OUTSIDE RECORDS SUMMARY | 2025-05-19 11:28 | XMS_ITS | Clinical Summary ---
Author Organization [facility] Address [facility] [place] [address] Care Team Providers Care R Developer Name Role Phone None, Provider Unavailable Unavailable Soo Howard MD Primary Care Provider + Allergies No known active allergies Medications apixaban (ELIQUIS) 5 MG tablet Take 1 tablet (5 mg total) by mouth 2 (two) times daily. 01/08/2024 Active candesartan (ATACAND) 32 MG tablet Take 0.5 tablets (16 mg total) by mouth daily. 02/26/2024 Active flecainide (TAMBOCOR) 50 MG tablet Take 1 tablet (50 mg total) by mouth 2 (two) times daily. 02/26/2024 Active verapamil (CALAN SR) 180 MG ER tablet Take 2 tablets (360 mg total) by mouth daily. 03/07/2024 Active Active Problems Problem Noted Date Diagnosed Date Subclinical hypothyroidism 05/19/2025 Assessment & Plan (05/19/2025 8:38 AM CDT): Ordered TSH and T4. Hydrocele in adult 05/06/2024 Overview (05/06/2024): Right sided Bradycardia 02/10/2021 Chronic anticoagulation 03/28/2019 Overview (05/06/2024): CBC earlier this year. Takes Eliquis. Obstructive sleep apnea syndrome 03/28/2016 Overview (05/06/2024): GILBERT (obstructive sleep apnea). Sees water resource consultant once a year. Essential hypertension 11/03/2015 Overview (05/06/2024): Managed by cardiology. Well-controlled. Takes candesartan and verapamil which is also used for rate control. Paroxysmal atrial fibrillation 11/03/2015 Overview (05/06/2024): PAF (paroxysmal atrial fibrillation). Symptomatic with episodes. Takes flecainide prophylactically along with verapamil for rate control. Encounters Date Type Department Care Team Description 05/19/2025 8:10 AM CDT Office Visit [facility] Family Medicine - [place] [address] [address] Soo Howard MD Annual (Here for his annual ck up. ) 05/19/2025 Travel from Last 3 Months Immunizations Immunization Administration Dates Next Due Fluzone High Dose (IIV, trivalent, 0.5mL) 2024,05/27/2024 Fluzone High Dose - >Age 65 (Prefilled Syringe) 05/29/2023,05/16/2022 Pneumococcal (Prevnar 20) 05/06/2024 Tdap (Adacel) 05/19/2025 Family History Medical History Relation Comments No Known Problems Daughter 1 No Known Problems Daughter 2 Cancer Father Heart Disease Father heparin induced thrombocytopenia Prostate Cancer Father Cancer Mother Breast cancer No Known Problems Sister No Known Problems Son Relation Status Comments Daughter 1 Alive Daughter 2 Alive Father bladder cancer Mother Sister Alive Son Alive Social History Tobacco Use Types Packs/Day Years [...] on file Sexual Orientation Not on file Last Filed Vital Signs Vital Sign Reading [...] Mass Index 35.88 05/19/2025 8:02 AM CDT Plan of Treatment Upcoming Encounters Date Type Department Care Team (Late st Contact Info) Description 05/25/2026 8:10 AM CDT Office Visit [facility] Family Medicine - [place] [address] [place] [address] [phone] Soo Howard MD [address] [place], [place] [id number] Health Maintenance Due Date Last Done Comments Hepatitis C 1975 Zoster Vaccines (1 of 2) 2007 AAA SCREENING 2022 COVID-19 Vaccine ( season) 2025 05/27/2024, 05/29/2023, 05/02/2022, Additional history exists Colorectal Cancer Screening Colonoscopy (10 Years) 05/30/2027 05/30/2022 RSV Immunization or 60+ Years (1 - 1-dose 75+ series) 2032 DTaP, Tdap and Td Vaccines (2 - Td or Tdap) 05/19/2035 05/19/2025 Pneumococcal Vaccine: 50+ Years Completed 05/06/2024 Influenza Adult Completed 05/19/2025, 05/01, 05/29/2023, Additional history exists PHQ-2 ([employer]) Completed 05/19/2025 Hepatitis A Vaccines Aged Out No long er eligible based on patient's age to complete this topic Meningococcal B Vaccine Aged Out No l onger eligible based on patient's age to complete this topic Meningococcal Vaccine Aged Out No juan j edith eligible based on patient's age to complete this topic RSV Immunizations Under 20 Months Aged Out No longer eligible based on patient's age to complete this topic Procedures Procedure Name Priority Date/Time Associated Diagnosis Comments COLONOSCOPY GENERIC (SCAN ORDER) 05/30/2022 from Last 3 Months or Most Recently Relevant to Health Maintenance Results * COLONOSCOPY GENERIC (SCAN ORDER) (05/30/2022) 05/30/2022 [facility] Scanned SCANNING Final Resu lt from Last 3 Months or Most Recently Relevant to Health Maintenance Insurance R MEDICARE PART A Care Teams R Developer Relationship Specialty Start Date End Date Soo Howard MD [address] [place] [phone] PCP - General FAMILY PRACTICE 05/07/24 None, MD [place] 10/26/23
--- OUTSIDE RECORDS SUMMARY | 2025-05-19 11:28 | XMS_ITS | Encounter Summary ---
Author Organization [facility] Address [facility] [place] [address] Care Team Providers Care Radio Repairer Name Role Phone None, Provider MD Archuleta Unavailable Soo Howard MD Primary Care Provider + Encounter Details Date Type Department Care Team ([facility] Contact Info) Description 05/07/2024 A Green Night's Sleept Message Enc [address] [place] [phone] Soo Howard MD [address] [place] [phone] Lab results Social History Tobacco Use Types Packs/Day Years Used Date Smoking Tobacco: Former Cigarettes 0.3 4 Q uit: 12/29/1989 Passive Smoke Exposure: Past Smokeless Tobacco: Never Alcohol Use Standard Drinks/Week Comments Not Currently 0 (1 standard drink = 0.6 oz pur e alcohol) PHQ-2 Answer Date Recorded Patient Health Questionnaire-2 Score 0 05/06/2024 Sex and Gender Information Value Date Recorded Sex Assigned at Not on file Legal Sex Male 8:02 PM CDT Gender Identity Not on file Sexual Orientation Not on file documented as of this encounter Plan of Treatment Upcoming Encounters Date Type Department Care Team ([facility] Contact Info) Description 05/25/2026 8:10 AM CDT Office Visit [facility] [address] [facility] [address] [place] [address] Soo Howard MD [address] [place] [address] documented as of this encounter Visit Diagnoses Not on filedocumented in this encounter Care Teams Radio Repairer Relationship Specialty Start Date End Date Soo Howard MD [address] [place] [id number] PCP - General FAMILY PRACTICE 05/07/24 None, Provider, 10/26/23 documented as of this encounter
--- OUTSIDE RECORDS SUMMARY | 2025-05-19 11:28 | XMS_ITS | Clinical Summary ---
Author Organization [facility] [address] Address [address] [place] [address] Care Team Providers Care Imaging Analyst Name Role Phone Soo Howard MD Primary Care Provider Allergies No known active allergies Medications vitamins A,C,H-wjpf-elkela (OCUVITE) 2,148 mcg-113 mg-45 mg-17.4mg tablet 1 tablet Act don apixaban (Eliquis) 5 mg tabletIndications :Paroxysmal atrial fibrillation (HCC) Take 1 tablet (5 mg total) by mouth 2 (two) times a day 180 tablet 3 5 Active flecainide (TAMBOCOR) 50 mg tabletIndications :Paroxysmal atrial fibrillation (HCC) TAKE 1 TABLET TWICE A DAY 180 tablet 1 5 Active verapamil SR (CALAN SR) 180 mg CR tabletIndications :Benign hypertension TAKE 2 TABLETS BY MOUTH EVERY NIGHT 180 tablet 1 5 Active candesartan (ATACAND) 32 mg tablet TAKE 1/2 TABLET DAILY 45 tablet 1 5 Active Active Problems Problem Noted Date Diagnosed Date Encounter for monitoring flecainide therapy 10/2024 Morbid (severe) obesity due to excess calories 1 08/26/2022 Bradycardia 02/10/2021 Overweight 01/18/2020 Typical atrial flutter 01/18/2020 Medication monitoring encounter 07/09/2019 Chronic anticoagulation 03/28/2019 Obstructive sleep apnea syndrome 03/28/2016 Overview (11/03/2016): GILBERT (obstructive sleep apnea) Body mass index (BMI) 35.0-35.9, adult 6 Overview (11/03/2016): Obesity (BMI 30-39.9) Paroxysmal atrial fibrillation 11/03/2015 Overview (11/03/2016): PAF (paroxysmal atrial fibrillation) Family history of thrombosis or embolism 016 Overview (11/03/2016): Family history of coronary artery disease occurring prior to 55 years of age Essential hypertension 11/03/2015 Overview (11/03/2016): HTN (hypertension), benign Resolved Problems Problem Noted Date Diagnosed Date Resolved Date Drug therapy finding 03/28/2016 019 Overview (11/03/2016): Therapeutic drug monitoring Encounters Date Type Department Care Team Description 03/03/2025 8:45 AM CDT Office Visit [facility] [address] [place] [address] Lalit Michelle MD Encounter for monitoring flecainide therapy (Primary Dx); Obstructive sleep apnea syndrome; Paroxysmal atrial fibrillation (HCC); Essential hypertension; Chronic anticoagulation; Morbid (severe) obesity due to excess calories (E66.01); Body mass index [BMI] 35.0-35.9, adult (Z68.35) from Last 3 Months Surgical History Surgery Date Site/Laterality Comments HERNIA REPAIR 06/06/22 Medical History Medical History Date Comments Hx Other Medical GILBERT, CPAP, Dr. Martínez; Comments: ELU 03/28/2016 - Benign prostatic hyperplasia Hypertension 2005 Sleep apnea 2016 Family History Medical History Relation Name Comments Bladder Cancer Father Marcelo Stapleton Cancer, blad toby; Cancer Father Marcelo Stapleton Coronary artery disease Father Marcelo Stapleton Cor onary artery disease; ELU 11/03/2015 -Had [place] 45 y.o. Heart disease Father Marcelo Stapleton Prostate cancer Father Marcelo Stapleton Cancer, pro state; Breast cancer Mother Jeaneth Stapleton Cancer, sana ast; Cancer Mother Jeaneth Stapleton Thyroid disease Mother Jeaneth Stapleton Thyroid d isorder; Relation Name Status Comments Father Marcelo Stapleton Mother Jeaneth Stapleton Social History Tobacco Use Types Packs/Day Years Used Date Smoking Tobacco: Never Cigarettes Smokeless Tobacco: Never Tobacco Cessation:Counseling Given: Not Answered Alcohol Use Standard Drinks/Week Comments No 0 (1 standard drink = 0.6 oz pur e alcohol) Sex and Gender Information Value Date Recorded Sex Assigned at Not on file Legal Sex Male 4:03 AM RN TELEHEALTH Gender Identity Not on file Sexual Orientation Not on file Obstetrics History Last Filed Vital Signs Vital Sign Reading Time Taken Comments Blood Pressure 120/70 03/03/2025 8:55 AM CDT Pulse 55 03/03/2025 8:55 AM CDT Temperature - - Respiratory Rate 16 02/27/2019 1:27 PM CDT Oxygen Saturation 95% 03/03/2025 8:55 AM CDT Inhaled Oxygen Concentration - - Weight 109.8 kg (242 lb) 03/03/2025 8:55 AM CDT Height 175.3 cm (5' 9) 03/03/2025 8:55 AM CDT Body Mass Index 35.74 03/03/2025 8:55 AM CDT Plan of Treatment Health Maintenance Due Date Last Done Comments Colon Cancer Screening-Colonoscopy 1957 Depression Screening 1957 Fall Risk Assessment 1957 Hepatitis C Screening 1957 Prostate Cancer Screening-PSA 1957 DTaP/Tdap/Td Vaccine (1 - Tdap) 1968 Hepatitis B Screening 1975 Pneumococcal vaccine 65+ (1 of 1 - PCV) 2007 Zoster Vaccine (1 of 2) 2007 Well Visit 65+ 2022 Influenza Vaccine (#1) [address] [facility] H[facility]/PPO Address: [address] [address] [facility]O Address: [address] [address] Care Teams Imaging Analyst Relationship Specialty Start Date End Date Soo Howard MD [address] [place] [address] PCP - General Family Medicine 08/28/24
--- OUTSIDE RECORDS SUMMARY | 2025-05-19 11:28 | XMS_ITS | Encounter Summary ---
Author Organization [facility] Address [address] [place] [address] Care Team Providers Care Racehorse Trainer Name Role Phone None, Provider Unavailable Unavailable Soo Howard MD Primary Care Provider + Encounter Details Date Type Department Care Team (Latest Contact Info) Description 05/19/2025 Travel Social History Tobacco Use Types Packs/Day Years [...] on file documented as of this encounter Functional Status * Over the past 2 weeks, how often have you been bothered by any of the following problems? Question Answer Date of Assessment Author Status Little interest or pleasure in doing things Not at all 05/19/2025 8:09 AM LEISAT Carey Trevino MA Active Feeling down, depressed, or hopeless Not at all 05/19/2025 8:09 AM LEISAT Carey Trevino MA Activ e Patient Health Questionnaire-2 Score 0 05/19/2025 8:09 AM CDT Carey Trevino MA Active * If you checked off any problems on this questionnaire so far, Question Answer Date of Assessment Author Status How difficult have these problems made it for you to do your work, take care of things at home, or get along with other people? Not difficult at all 05/19/2025 8:09 AM CDT Carey Trevino MA Active documented as of this encounter Plan of Treatment Upcoming Encounters Date Type Department Care Team (Late st Contact Info) Description 05/25/2026 8:10 AM CDT Office Visit [facility] Family Medicine - [place] [address] [place], [place] [phone] Soo Howard MD [address] [place], [place] [phone] documented as of this encounter Visit Diagnoses Not on filedocumented in this encounter Care Teams Racehorse Trainer Relationship Specialty Start Date End Date Soo Howard MD [address] [place] [phone] PCP - General FAMILY PRACTICE 05/07/24 None, Provider, 10/26/23 documented as of this encounter
[2025-05-19 13:22] LABS: Free T4 Free Thyroxine 1.12 ng/dL (0.78-2.19)
[2025-05-19 14:06] LABS: Prostate Specific Antigen 0.7 ng/mL (< OR = 4.0); Thyroid Stimulating Hormone 4.390 uIU/mL (0.465-4.680)
== END 2025-05-19 10:02 | disposition home or self-care (01) ==
LOC: ANHGOSHLAB 10:02
PROVIDERS: PCP Student in an Organized Health Care Education/Training Program; Visit Provider Student in an Organized Health Care Education/Training Program
DX: Z12.5 Encounter for screening for malignant neoplasm of prostate (principal); E03.8 Other specified hypothyroidism
CPT/HCPCS: 36415; 84153; 84439; 84443; G0103